=== PATIENT | female | born 1970 | race Caucasian/White ===

== ENCOUNTER → 2020-06-26 | Outpatient (CLI) | payer BC, OTHER | LOC: KOH-I 14:21 | DX: E04.1 Nontoxic single thyroid nodule (principal) | CPT/HCPCS: 76536 ==

== ENCOUNTER → 2020-07-25 | Outpatient (CLI) | payer BC, OTHER ==
[2020-07-25 09:38] LABS: HEMOGLOBIN 14.3 gm/dl (12.3-15.3); RED BLOOD COUNT 4.61 M/UL (4.00-5.10); WHITE BLOOD COUNT 7.3 K/UL (4.5-11.0)
== END ==
LOC: US 09:12
PROVIDERS: Otolaryngology
DX: D34 Benign neoplasm of thyroid gland (principal)
CPT/HCPCS: 36415; 85027; 85610; 85730

== ENCOUNTER → 2021-07-31 | Outpatient (CLI) | payer BC ==
[~2021-07-31] MED LIST: ATENOLOL50 MG PO; HYDROXYZINE HCL25 MG PO; MELOXICAM7.5 MG PO; OMEPRAZOLE20 MG PO; PRAVASTATIN SOD20 MG PO
== END ==
LOC: OPSV2 10:00
DX: Z01.810 Encounter for preprocedural cardiovascular examination (principal); N84.2 Polyp of vagina
CPT/HCPCS: 93005

== ENCOUNTER → 2021-08-06 | Day surgery (SDC) | payer BC ==
[~2021-08-06] VITALS: Ht 162.6 cm; Wt 72.6 kg
[~2021-08-06] MED LIST changes: +COLACE100 MG PO; +IBUPROFEN800 MG PO; +PERCOCET 5/325 T1 EA PO
== END | disposition home or self-care (01) ==
LOC: OR 06:03
DX: N84.1 Polyp of cervix uteri (principal); E78.2 Mixed hyperlipidemia; F41.1 Generalized anxiety disorder; I10 Essential (primary) hypertension; K21.9 Gastro-esophageal reflux disease without esophagitis; F17.210 Nicotine dependence, cigarettes, uncomplicated; Z79.899 Other long term (current) drug therapy; Z20.822 Contact with and (suspected) exposure to COVID-19
CPT/HCPCS: J0690; J1100; J1885; J2001; J2250; J2405; J2704; J3010; J7120

== ENCOUNTER → 2021-08-12 | Outpatient (CLI) | payer BC | LOC: KOH-I 12:39 | DX: D34 Benign neoplasm of thyroid gland (principal) | CPT/HCPCS: 76536 ==